=== PATIENT | female | born 1950 | race Two or more races ===

== ENCOUNTER 2018-11-23 11:32 | Emergency (ER) | payer OTHER ==
[~2018-11-23] VITALS: Ht 162.6 cm; Wt 124.7 kg
[2018-11-23 12:23] LABS: Basophils # (auto) 0 uL; Basophils % (auto) 0.4 % (0.0-2.0); Eosinophils # (auto) 0.1 uL; Eosinophils % (auto) 1.1 % (0.0-7.0); Hemoglobin 16.9 g/dL (12.2-16.2); Lymphocytes # (auto) 2.1 uL; Lymphocytes % (auto) 41.4 % (10.0-50.0); Mean Corpuscular Hgb Conc. 32.4 g/dL (32.0-36.0); Mean Corpuscular Volume 89.3 fL (80.0-100.0); Monocytes # (auto) 0.5 uL; Monocytes % (auto) 9.3 % (0.0-12.0); Neutrophils # (auto) 2.4 uL; Neutrophils % (auto) 47.8 % (37.0-80.0); Nucleated Red Blood Cells % 0.6 %; Platelet Count (auto) 187 10^3/uL (140-450); Red Blood Cells 5.82 10^6/uL (4.0-5.20)
[2018-11-23 12:26] LABS: Alanine Aminotransferase 27 U/L (13-56); Albumin 3.5 g/dL (3.4-5.0); Anion Gap 4 (5-15); Aspartate Aminotransferase 21 U/L (15-37); BUN/Creatinine Ratio 15.5; Blood Urea Nitrogen 11 mg/dL (7-18); Calcium 8.1 mg/dL (8.5-10.1); Carbon Dioxide 32 mmol/L (21-32); Chloride 104 mmol/L (98-107); GFR African American 105 mL/min; GFR Non-African American 87 mL/min; Glucose 93 mg/dL (74-106); Potassium 3.8 mmol/L (3.5-5.1); Sodium 140 mmol/L (136-145)
[2018-11-23 12:31] LABS: Alkaline Phosphatase 99 U/L (45-117); Bilirubin, Total 0.2 mg/dL (0.2-1.0)
[2018-11-23 14:40] VITALS: BP 132/86
== END 2018-11-23 16:06 | disposition home or self-care (01) ==
LOC: EDBD 11:32 → ER 11:37
DX: J45.909 Unspecified asthma, uncomplicated (principal); R09.89 Other specified symptoms and signs involving the circulatory and respiratory systems; J11.1 Influenza due to unidentified influenza virus with other respiratory manifestations
CPT/HCPCS: 36415; 71045; 80053; 84484; 85025; 87804; 93005

== ENCOUNTER 2020-12-28 18:18 | Inpatient (IN) | payer OTHER ==
[~2020-12-28] VITALS: Ht 160 cm; Wt 85.3 kg
[2020-12-28] MEDS ORDERED: ACETAMINOPHEN 500 MG TAB PO ONE (19:15)
[2020-12-28 19:16] LABS: Basophils # (auto) 0.1 10 ^3/uL (0-0.2); Basophils % (auto) 0.3 % (0.0-2.0); Eosinophils # (auto) 0.1 10 ^3/uL (0-0.8); Eosinophils % (auto) 0.3 % (0.0-7.0); Hematocrit 44.2 % (36.0-46.0); Hemoglobin 15.1 g/dL (12.2-16.2); Lymphocytes % (auto) 5.4 % (10.0-50.0); Mean Corpuscular Hemoglobin 30.9 pg (28.0-32.0); Mean Corpuscular Volume 90.7 fL (80.0-100.0); Monocytes # (auto) 0.8 10 ^3/uL (0-1.3); Monocytes % (auto) 4.2 % (0.0-12.0); Neutrophils # (auto) 16.9 10 ^3/uL (1.6-8.6); Neutrophils % (auto) 89.8 % (37.0-80.0); Platelet Count (auto) 254 10^3/uL (140-450); Red Blood Cells 4.88 10^6/uL (4.0-5.20); Red Cell Distribution Width 14.3 % (11.8-14.3); White Blood Cell 18.8 10^3/uL (4.4-10.8)
[2020-12-28] MEDS ORDERED: ONDANSETRON HCL 4 MG/2 ML VIAL IV ONE (19:30)
[2020-12-28 19:52] LABS: Magnesium 2.3 mg/dL (1.6-2.6)
[2020-12-28 19:55] LABS: Anion Gap 8 (5-15); Blood Urea Nitrogen 28 mg/dL (7-18); Calcium 8.6 mg/dL (8.5-10.1); Carbon Dioxide 22 mmol/L (21-32); Chloride 103 mmol/L (98-107); Glucose 107 mg/dL (74-106); Potassium 4.1 mmol/L (3.5-5.1); Sodium 133 mmol/L (136-145)
[2020-12-28 20:02] LABS: Alanine Aminotransferase 79 U/L (13-56); Alkaline Phosphatase 351 U/L (45-117); Aspartate Aminotransferase 73 U/L (15-37); BUN/Creatinine Ratio 25.9; Bilirubin, Total 1.8 mg/dL (0.2-1.0); GFR African American 65 mL/min; GFR Non-African American 53 mL/min; Total Protein 8.3 g/dL (6.4-8.2)
[2020-12-28 20:03] LABS: INR 1.13 (0.9-1.15); Partial Thromboplastin Time 30.8 sec (23.0-31.2)
[2020-12-28 20:18] LABS: Albumin 2.5 g/dL (3.4-5.0)
[2020-12-28] MEDS ORDERED: SODIUM CHLORIDE 0.9% 1,000 ML IV ONE (20:45)
[2020-12-28] MEDS ORDERED: metroNIDAZOLE 500MG/100ML 100 ML IV ONE (20:45)
[2020-12-28] MEDS ORDERED: cefTRIAXone 1GM/50ML D5W 50 ML IV ONE (20:45)
[2020-12-28] MEDS ORDERED: MORPHINE SULF INJ 2 MG/ML SYRINGE 1ML IV PRN ×2 (23:15)
[2020-12-28] MEDS ORDERED: HYDROcodone-ACET 5/325MG TAB PO PRN (23:15)
[2020-12-28] MEDS ORDERED: ONDANSETRON HCL 4 MG/2 ML VIAL IV PRN (23:15)
[2020-12-28] MEDS ORDERED: NITROGLYCERIN 0.4 MG SL TAB SL PRN (23:15)
[2020-12-28] MEDS ORDERED: ACETAMINOPHEN 500 MG TAB PO PRN (23:15)
[2020-12-28 23:50] VITALS: BP 106/58
[2020-12-29 00:16] LABS: Urine Amorphous Crystal FEW /hpf (None Seen); Urine Bacteria NONE SEEN /hpf (None Seen); Urine Blood 1+ /uL (Negative); Urine Mucus FEW (None Seen); Urine Specific Gravity 1.023 (1.001-1.035); Urine WBC 24 /hpf (0 - 5)
[2020-12-29] MEDS: D5W/SOD CHL 0.45% 1,000 ML IV SCH ×3 (00:17→18:43)
[2020-12-29] MEDS ORDERED: LISI-716 PO (00:42)
[2020-12-29] MEDS ORDERED: HYDR25TA4 PO (00:42)
[2020-12-29] MEDS ORDERED: PNEUMOCOCCAL VACC POLYS 25 MCG/0.5 ML VIAL IM SCH (00:45)
[2020-12-29 05:00] VITALS: BP 107/63
[2020-12-29 06:25] LABS: Calcium 8.1 mg/dL (8.5-10.1); Potassium 4.2 mmol/L (3.5-5.1)
[2020-12-29] MEDS: metroNIDAZOLE 500MG/100ML 100 ML IV SCH ×3 (06:27→22:04)
[2020-12-29 06:30] LABS: BUN/Creatinine Ratio 28.7; Bilirubin, Total 1.4 mg/dL (0.2-1.0); Total Protein 7.3 g/dL (6.4-8.2)
[2020-12-29 07:21] LABS: Basophils # (auto) 0 10 ^3/uL (0-0.2); Basophils % (auto) 0.2 % (0.0-2.0); Eosinophils # (auto) 0.1 10 ^3/uL (0-0.8); Eosinophils % (auto) 0.6 % (0.0-7.0); Hematocrit 39.5 % (36.0-46.0); Hemoglobin 13.5 g/dL (12.2-16.2); Lymphocytes # (auto) 0.9 10 ^3/uL (0.4-5.4); Lymphocytes % (auto) 5.1 % (10.0-50.0); Mean Corpuscular Hemoglobin 30.9 pg (28.0-32.0); Mean Corpuscular Hgb Conc. 34.1 g/dL (32.0-36.0); Mean Corpuscular Volume 90.8 fL (80.0-100.0); Monocytes # (auto) 0.7 10 ^3/uL (0-1.3); Neutrophils # (auto) 15.2 10 ^3/uL (1.6-8.6); Neutrophils % (auto) 90.1 % (37.0-80.0); Nucleated Red Blood Cells % 0.1 %; Platelet Count (auto) 232 10^3/uL (140-450); Red Blood Cells 4.35 10^6/uL (4.0-5.20); Red Cell Distribution Width 14.2 % (11.8-14.3); White Blood Cell 16.9 10^3/uL (4.4-10.8)
[2020-12-29 08:00] VITALS: BP 92/58
[2020-12-29] MEDS: cefTRIAXone 1GM/50ML D5W 50 ML IV SCH (08:51)
[2020-12-29] MEDS: FAMOTIDINE 20 MG TAB PO SCH (08:52)
[2020-12-29] MEDS: ENOXAPARIN SOD 40 MG/0.4 ML SYRINGE SC SCH (08:52)
[2020-12-29 09:00] VITALS: BP 92/58
[2020-12-29 13:00] VITALS: BP 111/61
[2020-12-29 16:46] VITALS: BP 99/55
[2020-12-29 21:43] VITALS: BP 112/67
[2020-12-30 05:04] VITALS: BP 112/63
[2020-12-30] MEDS: D5W/SOD CHL 0.45% 1,000 ML IV SCH (05:15)
[2020-12-30] MEDS: metroNIDAZOLE 500MG/100ML 100 ML IV SCH ×3 (05:51→22:00)
[2020-12-30 06:41] LABS: Basophils # (auto) 0 10 ^3/uL (0-0.2); Basophils % (auto) 0.1 % (0.0-2.0); Eosinophils # (auto) 0.3 10 ^3/uL (0-0.8); Eosinophils % (auto) 1.8 % (0.0-7.0); Hemoglobin 13.7 g/dL (12.2-16.2); Lymphocytes # (auto) 1.4 10 ^3/uL (0.4-5.4); Lymphocytes % (auto) 8.6 % (10.0-50.0); Mean Corpuscular Hemoglobin 30.3 pg (28.0-32.0); Mean Corpuscular Hgb Conc. 32.6 g/dL (32.0-36.0); Mean Corpuscular Volume 92.9 fL (80.0-100.0); Monocytes # (auto) 0.9 10 ^3/uL (0-1.3); Monocytes % (auto) 5.2 % (0.0-12.0); Neutrophils # (auto) 14.2 10 ^3/uL (1.6-8.6); Neutrophils % (auto) 84.3 % (37.0-80.0); Nucleated Red Blood Cells % 0.1 %; Platelet Count (auto) 259 10^3/uL (140-450); Red Blood Cells 4.52 10^6/uL (4.0-5.20); Red Cell Distribution Width 14.5 % (11.8-14.3); White Blood Cell 16.8 10^3/uL (4.4-10.8)
[2020-12-30 07:07] LABS: Calcium 8.2 mg/dL (8.5-10.1); Potassium 3.3 mmol/L (3.5-5.1)
[2020-12-30 07:13] LABS: BUN/Creatinine Ratio 21.5; Bilirubin, Total 0.5 mg/dL (0.2-1.0)
[2020-12-30 09:00] VITALS: BP 114/65
[2020-12-30] MEDS: cefTRIAXone 1GM/50ML D5W 50 ML IV SCH (09:09)
[2020-12-30] MEDS: ENOXAPARIN SOD 40 MG/0.4 ML SYRINGE SC SCH (09:10)
[2020-12-30] MEDS: FAMOTIDINE 20 MG TAB PO SCH (09:10)
[2020-12-30] MEDS ORDERED: GOLYTELY 4L KIT PO ONE (12:30)
[2020-12-30 12:36] VITALS: BP 113/75
[2020-12-30] MEDS ORDERED: POTASSIUM CHL 20 Meq TABLET PO ONE (13:45)
[2020-12-30] MEDS: D5W/SOD CHL 0.45%/KCL 20MEQ 1,000 ML IV SCH (16:39)
[2020-12-30 17:00] VITALS: BP 125/77
[2020-12-30 20:00] VITALS: BP 128/89
[2020-12-30 22:00] VITALS: BP 128/89
[2020-12-31] MEDS: D5W/SOD CHL 0.45%/KCL 20MEQ 1,000 ML IV SCH ×2 (00:30→09:44)
[2020-12-31 05:00] VITALS: BP 107/61
[2020-12-31] MEDS: metroNIDAZOLE 500MG/100ML 100 ML IV SCH ×2 (06:00→13:33)
[2020-12-31 07:20] LABS: Basophils # (auto) 0.1 10 ^3/uL (0-0.2); Basophils % (auto) 0.5 % (0.0-2.0); Eosinophils # (auto) 0.2 10 ^3/uL (0-0.8); Eosinophils % (auto) 1.6 % (0.0-7.0); Hematocrit 40.3 % (36.0-46.0); Hemoglobin 13.3 g/dL (12.2-16.2); Lymphocytes # (auto) 1.5 10 ^3/uL (0.4-5.4); Lymphocytes % (auto) 10.4 % (10.0-50.0); Mean Corpuscular Hemoglobin 30.1 pg (28.0-32.0); Mean Corpuscular Hgb Conc. 32.9 g/dL (32.0-36.0); Mean Corpuscular Volume 91.5 fL (80.0-100.0); Monocytes # (auto) 0.7 10 ^3/uL (0-1.3); Monocytes % (auto) 4.9 % (0.0-12.0); Neutrophils # (auto) 11.7 10 ^3/uL (1.6-8.6); Neutrophils % (auto) 82.6 % (37.0-80.0); Nucleated Red Blood Cells % 0.1 %; Platelet Count (auto) 306 10^3/uL (140-450); Red Cell Distribution Width 14.3 % (11.8-14.3); White Blood Cell 14.1 10^3/uL (4.4-10.8)
[2020-12-31 07:42] LABS: Calcium 8.3 mg/dL (8.5-10.1); Potassium 3.2 mmol/L (3.5-5.1)
[2020-12-31 07:46] LABS: BUN/Creatinine Ratio 12.5; Magnesium 2.2 mg/dL (1.6-2.6)
[2020-12-31 08:30] VITALS: BP 109/59
[2020-12-31] MEDS ORDERED: diphenhdrAMINE HCL 50 MG/1 ML VL ONE (08:54)
[2020-12-31] MEDS ORDERED: SODIUM CHLORIDE LOCK 10 ML ONE (09:00)
[2020-12-31] MEDS: cefTRIAXone 1GM/50ML D5W 50 ML IV SCH (09:42)
[2020-12-31] MEDS: FAMOTIDINE 20 MG TAB PO SCH (09:42)
[2020-12-31] MEDS: ENOXAPARIN SOD 40 MG/0.4 ML SYRINGE SC SCH (09:43)
[2020-12-31] MEDS: fentaNYL CITRATE 100 MCG/2 ML VL ONE ×2 (12:11→12:15)
[2020-12-31] MEDS: MIDAZOLAM HCL 5 MG/ML-1ML VIAL ONE ×2 (12:11→12:15)
[2020-12-31 14:27] VITALS: BP 142/73
[2020-12-31] MEDS ORDERED: POTASSIUM CHL 20 Meq TABLET PO ONE (16:30)
[2020-12-31 17:00] VITALS: BP 114/60
== END 2020-12-31 18:23 | disposition home or self-care (01) | DRG 871 ==
LOC: ER 18:19 → TELE-CENTR 23:18
PROVIDERS: ADMIT Nurse Practitioner Acute Care; ATTEND Internal Medicine Geriatric Medicine
PROC: 0DJD8ZZ Inspection of Lower Intestinal Tract, Via Natural or Artificial Opening Endoscopic (ICD-10-PCS; principal; 2020-12-31 12:06)
DX: A41.9 Sepsis, unspecified organism (principal); J96.01 Acute respiratory failure with hypoxia; A04.9 Bacterial intestinal infection, unspecified; E87.1 Hypo-osmolality and hyponatremia; N17.9 Acute kidney failure, unspecified; R65.20 Severe sepsis without septic shock; Z20.822 Contact with and (suspected) exposure to COVID-19; K64.8 Other hemorrhoids; E88.09 Other disorders of plasma-protein metabolism, not elsewhere classified; I80.9 Phlebitis and thrombophlebitis of unspecified site; K62.89 Other specified diseases of anus and rectum; R79.89 Other specified abnormal findings of blood chemistry; I10 Essential (primary) hypertension; E66.01 Morbid (severe) obesity due to excess calories; K57.30 Diverticulosis of large intestine without perforation or abscess without bleeding; E87.6 Hypokalemia; M77.9 Enthesopathy, unspecified; Z80.0 Family history of malignant neoplasm of digestive organs; Z86.16 Personal history of COVID-19; Z98.51 Tubal ligation status; Z79.899 Other long term (current) drug therapy; Z68.33 Body mass index [BMI] 33.0-33.9, adult
CPT/HCPCS: 36415; 45378; 71045; 74176; 80048; 80053; 81001; 83605; 83690; 83735; 84443; 84484; 85025; 85610; 85730; 86850; 86900; 86901; 87040; 87045; 87086; 87426; 87427; 87493; 93005; 96365; 96367; G0378; J0696; J2250; J2405; J3490